=== PATIENT | female | born 1950 | race Native Hawaiian/Other Pacific Islander ===

== ENCOUNTER 2020-03-06 10:43 | Outpatient (CLI) | payer OTHER, MEDICARE | END 2020-03-06 21:13 | disposition home or self-care (01) | LOC: MRI 10:43 | PROVIDERS: ATTEND Physician Assistant | DX: M43.16 Spondylolisthesis, lumbar region (principal) ==

== ENCOUNTER 2020-12-01 13:35 | Emergency (ER) | payer OTHER ==
[~2020-12-01] VITALS: Ht 157.5 cm; Wt 88.9 kg
[2020-12-01 15:28] VITALS: BP 197/71; TEMP 98.4
[2020-12-01] MEDS ORDERED: TRULICITY1.5 MG/0.5 SC (16:09)
[2020-12-01] MEDS ORDERED: [UNRECOGNIZED DRUG - OTHER] PO (16:10)
[2020-12-01] MEDS ORDERED: METF100038 PO (16:10)
[2020-12-01] MEDS ORDERED: BASAGLAR K100 UNIT/M SC (16:10)
[2020-12-01] MEDS ORDERED: METO50TA63 PO (16:11)
[2020-12-01] MEDS ORDERED: HYZAAR1 TA2 PO (16:11)
[2020-12-01] MEDS ORDERED: CLON0.1T16 PO (16:12)
[2020-12-01] MEDS ORDERED: [UNRECOGNIZED DRUG - CODE] PO (16:12)
[2020-12-01] MEDS ORDERED: TRAMADOL HYDROC50 MG PO (16:12)
[2020-12-01] MEDS ORDERED: ASPIRIN 8181 MG PO (16:13)
[2020-12-01] MEDS ORDERED: TIZA4TAB5 PO (16:13)
[2020-12-01] MEDS ORDERED: B12-ACTIVE1 MG PO (16:14)
== END 2020-12-01 15:30 | disposition home or self-care (01) ==
LOC: ED 13:35
DX: R11.2 Nausea with vomiting, unspecified (principal); G89.4 Chronic pain syndrome; I10 Essential (primary) hypertension
CPT/HCPCS: 96372; 99282; J1885; J2405

== ENCOUNTER 2020-12-12 18:03 | Emergency (ER) | payer OTHER ==
[~2020-12-12] VITALS: Ht 157.5 cm; Wt 88.9 kg
[~2020-12-12 18:03] MED LIST: ASPIRIN 8181 MG PO; B12-ACTIVE1 MG PO; BASAGLAR K100 UNIT/M SC; CLON0.1T16 PO; HYZAAR1 TA2 PO; METF100038 PO; METO50TA63 PO; TIZA4TAB5 PO; TRAMADOL HYDROC50 MG PO; TRULICITY1.5 MG/0.5 SC; [UNRECOGNIZED DRUG - CODE] PO; [UNRECOGNIZED DRUG - OTHER] PO
[2020-12-12 19:10] LABS: PLATELET COUNT 302 K/uL (152-353)
[2020-12-12 19:16] LABS: POTASSIUM 4.1 mmol/L (3.6-5.2)
[2020-12-12 20:55] VITALS: BP 165/80; TEMP 98
== END 2020-12-12 20:55 | disposition home or self-care (01) ==
LOC: ED 18:03
PROVIDERS: Emergency Medicine Emergency Medical Services
DX: R11.2 Nausea with vomiting, unspecified (principal)
CPT/HCPCS: 36415; 80053; 81000; 83690; 85027; 96360; 96372; 96375; 99284; J2270; J2405; J3490

== ENCOUNTER 2021-04-29 10:54 | Outpatient (CLI) | payer OTHER | END 2021-04-29 19:26 | disposition home or self-care (01) | LOC: RAD 10:54 | PROVIDERS: ATTEND Nurse Practitioner Family | DX: M85.88 Other specified disorders of bone density and structure, other site (principal) ==

== ENCOUNTER 2021-07-26 15:17 | Emergency (ER) | payer OTHER ==
[~2021-07-26] VITALS: Ht 157.5 cm; Wt 84.8 kg
[2021-07-26 15:59] LABS: PLATELET COUNT 273 K/uL (152-353)
[2021-07-26 16:10] LABS: POTASSIUM 3.9 mmol/L (3.6-5.2)
[2021-07-26 21:08] VITALS: BP 166/69; TEMP 98.5
== END 2021-07-26 21:08 | disposition home or self-care (01) ==
LOC: ED 15:17
PROVIDERS: Hospitalist
DX: R19.7 Diarrhea, unspecified (principal); R11.2 Nausea with vomiting, unspecified; K57.30 Diverticulosis of large intestine without perforation or abscess without bleeding
CPT/HCPCS: 36415; 80053; 80320; 81000; 81002; 83690; 84484; 85027; 93005; 96360; 96365; 96375; 96376; 99284; J0360; J1885; J2405; J2543; Q9963

== ENCOUNTER 2021-10-15 21:56 | Emergency (ER) | payer OTHER ==
[~2021-10-15] VITALS: Ht 157.5 cm; Wt 81.6 kg
[2021-10-16 00:02] LABS: PLATELET COUNT 389 K/uL (152-353); POTASSIUM 4.2 mmol/L (3.6-5.2)
[2021-10-16 00:13] LABS: PARTIAL THROMBOPLASTIN TIME 21.8 SECONDS (24.5-33.6)
[2021-10-16 01:30] VITALS: BP 146/62; TEMP 98.8
== END 2021-10-16 01:30 | disposition short-term general hospital (02) ==
LOC: ED 21:56
PROVIDERS: Emergency Medicine
DX: I21.4 Non-ST elevation (NSTEMI) myocardial infarction (principal); I10 Essential (primary) hypertension; E11.9 Type 2 diabetes mellitus without complications; Z79.4 Long term (current) use of insulin; Z79.84 Long term (current) use of oral hypoglycemic drugs; Z11.52 Encounter for screening for COVID-19; W18.39XA Other fall on same level, initial encounter; Y92.092 Bedroom in other non-institutional residence as the place of occurrence of the external cause
CPT/HCPCS: 36415; 80053; 82550; 83880; 84484; 85027; 85610; 85730; 87635; 93005; 96365; 96375; 96376; 99284; J0360; J1644; J2270; J2405; U0003

== ENCOUNTER 2021-10-22 13:00 | Inpatient (IN) | payer OTHER | END 2021-10-29 09:09 | disposition still patient (30) | LOC: PAVB 13:00 | PROVIDERS: ADMIT Family Medicine; ATTEND Family Medicine | DX: M16.11 Unilateral primary osteoarthritis, right hip (principal); K29.70 Gastritis, unspecified, without bleeding; R26.2 Difficulty in walking, not elsewhere classified; M62.81 Muscle weakness (generalized); R26.81 Unsteadiness on feet; Z74.1 Need for assistance with personal care; K80.20 Calculus of gallbladder without cholecystitis without obstruction | CPT/HCPCS: 87081 ==

== ENCOUNTER 2021-10-24 13:22 | Outpatient (CLI) | payer OTHER | END 2021-10-24 18:55 | disposition home or self-care (01) | LOC: RAD 13:22 | PROVIDERS: ATTEND Family Medicine | DX: R76.11 Nonspecific reaction to tuberculin skin test without active tuberculosis (principal) ==

== ENCOUNTER 2022-03-05 12:22 | Outpatient (CLI) | payer OTHER | END 2022-03-05 19:53 | disposition home or self-care (01) | LOC: MRI 12:22 | PROVIDERS: ATTEND Physician Assistant Medical | DX: M54.17 Radiculopathy, lumbosacral region (principal) ==

== ENCOUNTER 2022-03-26 10:27 | Outpatient (CLI) | payer OTHER | END 2022-03-26 19:29 | disposition home or self-care (01) | LOC: MAMMO 10:27 | PROVIDERS: ATTEND Specialist | DX: Z12.31 Encounter for screening mammogram for malignant neoplasm of breast (principal) ==

== ENCOUNTER 2022-10-04 12:11 | Outpatient (CLI) | payer OTHER | END 2022-10-04 19:14 | disposition home or self-care (01) | LOC: RAD 12:11 | PROVIDERS: ATTEND Physician Assistant | DX: M54.2 Cervicalgia (principal); M25.511 Pain in right shoulder; M25.512 Pain in left shoulder ==

== ENCOUNTER 2023-03-29 08:57 | Outpatient (CLI) | payer OTHER | END 2023-03-29 19:27 | disposition home or self-care (01) | LOC: MAMMO 08:57 | PROVIDERS: ATTEND Specialist | DX: Z12.31 Encounter for screening mammogram for malignant neoplasm of breast (principal) ==